=== PATIENT | female | born 1990 ===

== ENCOUNTER 2018-11-09 20:57 | Emergency (ER) | payer OTHER ==
[2018-11-09 21:06] VITALS: BP 129/80
--- NOTE | 2018-11-09 21:36 | UC ---
Lower Extremity/Ankle HPI - HPI Summary HPI Summary: Patient presents to urgent care for evaluation of her right ankle. Patient is visiting from out of town. Patient states around noon she was walking and engorged when she slipped on stairs. Patient states she fell inverting her right ankle. Patient denies strike her head. No loss of conscious. No neck or back pain. Patient states she's been unable to bear weight since this time. Patient denies any paresthesias in her toes. Patient did apply ice and took 1 dose of Motrin several hours ago with little improvement. Patient states her ankle continued to swell so she wanted it looked at. Patient without a previous injury to the ankle. No hip or knee pain. No other injuries. Patient 's medications reviewed this visit. Patient states she is not . 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 Hx Last Menstrual Period: 10/18/18 Severity Initially: Moderate Severity Currently: Moderate Pain Intensity: 9 Pain Scale Used: 0-10 Numeric Able to Bear Weight: No - Allergies/Home Medications Allergies/Adverse Reactions: Allergies Allergy/AdvReac Type Severity Reaction Status Date / Time No Known Allergies Allergy Verified 11/09/18 21:06 Home Medications: Home Medications Levalbuterol HFA INHALER* [Xopenex Hfa Inhaler*] 2 puff INH QID PRN 11/09/18 [ History Confirmed 11/09/18] PMH/Surg Hx/FS Hx/Imm Hx Previously Healthy: Yes - Surgical History Surgical History: Yes Surgery Procedure, Year, and Place: deviated septum repair - Family History Known Family History: Positive: Non-Contributory - Social History Occupation: Employed Full-time Lives: With Family Alcohol Use: Weekly Substance Use Type: None Smoking Status (MU): Never Smoked Tobacco Review of Systems All Other Systems Reviewed And Are Negative: Yes Constitutional: Positive: Negative Skin: Negative: Rash, Bruising Neurovascular: Positive: Other - no paresthesia Musculoskeletal: Positive: Other: - right ankle pain Is Patient Immunocompromised?: No Physical Exam - Summary Physical Exam Summary: Vital Signs Reviewed: Yes A+Ox3, no distress Eyes: Conjunctiva Clear ENT: Hearing grossly normal neck: supple Respiratory: Positive: No respiratory distress, No accessory muscle use Cardiovascular: skin color reflect adequate perfusion 2+ DP, PT CBT < 2 sec Musculoskeletal Exam: + SLE + flex/ext knee with pain posterior medial malleolus no pain along achilless + flex/ext ankle with pain anterior margin of talus and posterir medial malleolus no pain MT No crepitus Neurological: Positive: Alert, ambulatory without difficulty + sensation throughout Psychological: Positive: Normal Response To proivder Skin: Positive: no rash, no ecchymosis, edema lateral meollus Triage Information Reviewed: Yes Vital Signs: Initial Vital Signs Temp 98.7 F 11/09/18 21:02 Pulse 89 11/09/18 21:02 Resp 18 11/09/18 21:02 BP 129/80 11/09/18 21:02 Pulse Ox 99 11/09/18 21:02 Diagnostics - Radiology No standard instances Radiology Interpretation Completed By: ED Physician - lateral STS, posterior malleolus fx, nondisplaced Lower Extremity Course/Dx - Differential Dx/Diagnosis Provider Diagnosis: Ankle fracture, left Discharge - Sign-Out/Discharge Documenting (check all that apply): Patient Departure All imaging exams completed and their final reports reviewed: Yes - Discharge Plan Condition: Stable Disposition: HOME Patient Education Materials: Ankle Fracture (ED), Crutch Instructions (ED) Forms: *Gen. Provider Communication, *Work Release Referrals: No Primary Care Phys,NOPCP [Primary Care Provider] - Additional Instructions: It is VERY important you do not bear weight on your foot until you are seen in follow-up by an orthopedic - bone specialist WEar the walking boot as much as possible - including while sleeping use crutches at ALL times when you are up and around apply ice (20 min at a time) every 2-3 hours for the next 2 days -Elevate your leg - this will help with swelling and pain - Alternate ibuprofen (advil, Motrin) 600mg and tylenol every 3 hours for pain. Take with food. Do NOT take for more than 4-5 days -Contact your doctor on Sunday to schedule an appointment with an orthopedic bones specialist this week If you have increased pain, weakness or other concerns you should be re- evaluated - wiggle your toes frequently to promote good blood flow in your foot and toes As discussed, your radiograph was reviewed by the provider that treated you tonight. It will be read by a radiologist tomorrow morning. If there is a finding other than that discussed with you today, you will receive a call from a care provider. - Billing Disposition and Condition Condition: STABLE Disposition: Home
--- NOTE | 2018-11-10 11:28 | UC ---
- Progress Note Progress Note: Patient Name: AXEL MOREIRA Medical Record#: [id number] Ordering Physician: Brandi PATTEN Acct.#: [id number] : 1990 Age: 28 Sex: F Location: [facility] Exam Date: 11/09/182103 ADM Status: DEP ER Order Information: ANKLE RIGHT 3+VWS Accession Number: [id number] CPT: 72482 INDICATION: Swelling over the right lateral malleolus after a fall COMPARISON: None. TECHNIQUE: 3 views of the right ankle were obtained. FINDINGS: There is moderate soft tissue swelling overlying the fibular malleolus. Depicted only on the lateral view is cortical discontinuity overlying the posterior tubercle of the tibia. The bones of the ankle are otherwise anatomically aligned without asymmetric widening of the ankle mortise. IMPRESSION: NONDISPLACED FRACTURE OF THE POSTERIOR TUBERCLE WITH SOFT TISSUE SWELLING OVERLYING THE FIBULAR MALLEOLUS. R0 Preliminary Imaging Read R0 <Electronically signed by Avery Perea MD in OV> 11/10/18 1040 Dictated By: Avery Perea MD Dictated Date/Time: 11/10/18 1040 Transcribed Date/Time: 11/10/18 1038 Copy to: CC:Kamilla Luis MD; Brandi PATTEN; No Primary Care Phys,NOPCP Imaging - [facility] Imaging - [facility] [address] [address] ph ([phone]) ph ([phone]) ph ([phone]) This report is only to be considered final once signed by the Provider(s) as displayed in the "<Electronically Signed by >" field (s). Absence of a signature indicates the report is in a draft status and still needs to be finalized. In the event this document was created by someone other than the signing Provider, the individual initiating the document will be listed in the "Entered by:" or "Dictated by:" [email or web address]. 1 of 1 Course/Dx - Diagnoses Provider Diagnoses: Ankle fracture, left Discharge - Sign-Out/Discharge Documenting (check all that apply): Post-Discharge Follow Up All imaging exams completed and their final reports reviewed: Yes - Discharge Plan Condition: Stable Disposition: HOME Patient Education Materials: Ankle Fracture (ED), Crutch Instructions (ED) Forms: *Gen. Provider Communication, *Work Release Referrals: No Primary Care Phys,NOPCP [Primary Care Provider] - Additional Instructions: It is VERY important you do not bear weight on your foot until you are seen in follow-up by an orthopedic - bone specialist WEar the walking boot as much as possible - including while sleeping use crutches at ALL times when you are up and around apply ice (20 min at a time) every 2-3 hours for the next 2 days -Elevate your leg - this will help with swelling and pain - Alternate ibuprofen (advil, Motrin) 600mg and tylenol every 3 hours for pain. Take with food. Do NOT take for more than 4-5 days -Contact your doctor on Sunday to schedule an appointment with an orthopedic bones specialist this week If you have increased pain, weakness or other concerns you should be re- evaluated - wiggle your toes frequently to promote good blood flow in your foot and toes As discussed, your radiograph was reviewed by the provider that treated you tonight. It will be read by a radiologist tomorrow morning. If there is a finding other than that discussed with you today, you will receive a call from a care provider. - Billing Disposition and Condition Condition: STABLE Disposition: Home
== END 2018-11-09 22:12 | disposition home or self-care (01) ==
LOC: UCEAST 20:57
DX: S82.61XA Displaced fracture of lateral malleolus of right fibula, initial encounter for closed fracture (principal); W10.9XXA Fall (on) (from) unspecified stairs and steps, initial encounter; Y92.9 Unspecified place or not applicable
CPT/HCPCS: 99203; G0463